=== PATIENT | female | born 1965 | race Caucasian/White ===

== ENCOUNTER 2016-07-05 12:38 | Observation (INO) | payer MEDICAID ==
[2016-07-05] MEDS ORDERED: IOPAMIDOL-300 100 ML VIAL IVP ONE (16:25)
[2016-07-05] MEDS ORDERED: HEPARIN 25,000 UNITS/500 ML 500 ML IV STA (16:59)
[2016-07-05] MEDS ORDERED: HEPARIN 5,000 UNIT/ML VIAL IVP ONE (16:59)
[2016-07-05] MEDS ORDERED: ENOXAPARIN 60 MG/0.6 ML SYRINGE SUBQ STA (17:01)
[2016-07-05] MEDS ORDERED: ENOXAPARIN 100 MG/ML SYRINGE SUBQ ONE (17:12)
[2016-07-05] MEDS ORDERED: ENOXAPARIN 60 MG/0.6 ML SYRINGE SUBQ ONE (17:14)
[2016-07-05] MEDS ORDERED: oxyCODONE 5 MG TABLET PO PRN (18:05)
[2016-07-05] MEDS ORDERED: SODIUM CHLORIDE FLUSH 0.9% 10 ML SYRINGE IVP PRN (18:05)
[2016-07-05] MEDS ORDERED: ONDANSETRON 4 MG/2 ML VIAL IVP PRN (18:05)
[2016-07-05] MEDS ORDERED: ZOLPIDEM 5 MG TABLET PO PRN (18:05)
[2016-07-05] MEDS: oxyCODONE 5 MG TABLET PO PRN (20:02)
[2016-07-05] MEDS: SODIUM CHLORIDE FLUSH 0.9% 10 ML SYRINGE IVP SCH (21:15)
[2016-07-05] MEDS: ACETAMINOPHEN 325 MG TABLET PO PRN (21:16)
[2016-07-05] MEDS ORDERED: HYDROmorphone 1 MG/ML SYRINGE IVP PRN (21:38)
[2016-07-06] MEDS: oxyCODONE 5 MG TABLET PO PRN ×2 (00:12→06:51)
[2016-07-06] MEDS: ACETAMINOPHEN 325 MG TABLET PO PRN (04:14)
[2016-07-06] MEDS: SODIUM CHLORIDE FLUSH 0.9% 10 ML SYRINGE IVP SCH (06:57)
[2016-07-06] MEDS ORDERED: PANTOPRAZOLE 40 MG TABLET PO SCH (07:00)
[2016-07-06] MEDS ORDERED: POLYETHYLENE GLYCOL 3350 17 GM PACKET PO SCH (09:00)
[2016-07-06] MEDS ORDERED: ENOXAPARIN 60 MG/0.6 ML SYRINGE SUBQ SCH (09:00)
== END 2016-07-06 11:35 | disposition home or self-care (01) ==
DX: I26.99 Other pulmonary embolism without acute cor pulmonale (principal); I82.622 Acute embolism and thrombosis of deep veins of left upper extremity; C34.91 Malignant neoplasm of unspecified part of right bronchus or lung; E78.5 Hyperlipidemia, unspecified; I25.10 Atherosclerotic heart disease of native coronary artery without angina pectoris; R94.2 Abnormal results of pulmonary function studies; I25.2 Old myocardial infarction; Z98.61 Coronary angioplasty status; Z85.118 Personal history of other malignant neoplasm of bronchus and lung; Z92.21 Personal history of antineoplastic chemotherapy; Z92.3 Personal history of irradiation; Z91.14 Patient's other noncompliance with medication regimen; Z79.82 Long term (current) use of aspirin; Z79.899 Other long term (current) drug therapy; Z87.891 Personal history of nicotine dependence
CPT/HCPCS: 36415; 71275; 80053; 83690; 83735; 84100; 85025; 85610; 85730; 93971; 96372; 99284; 99285; A9270; G0378; J1650; Q9967

== ENCOUNTER 2016-08-11 12:43 | Outpatient (CLI) | payer MEDICAID | END 2016-08-11 12:44 | disposition home or self-care (01) | DX: Z79.01 Long term (current) use of anticoagulants (principal) ==

== ENCOUNTER 2016-08-11 19:36 | Inpatient (IN) | payer MEDICAID ==
[2016-08-12] MEDS ORDERED: SODIUM CHLORIDE 0.9% 1,000 ML IV STA ×2 (00:27→04:30)
[2016-08-12] MEDS ORDERED: ONDANSETRON 4 MG/2 ML VIAL IVP STA (01:52)
[2016-08-12] MEDS ORDERED: ONDANSETRON 4 MG/2 ML VIAL ONE (01:52)
[2016-08-12] MEDS ORDERED: IOPAMIDOL-300 100 ML VIAL IVP ONE ×2 (02:25)
[2016-08-12] MEDS ORDERED: VANCOMYCIN INJ 1 GM in SODIUM CHLORIDE 0.9% 250 ML IV STA (04:20)
[2016-08-12] MEDS ORDERED: PIPERACILLIN/TAZOBACTAM 3.375 GM in SODIUM CHLORIDE 0.9% MINIBAG 100 ML IV STA (04:20)
[2016-08-12] MEDS ORDERED: PHYTONADIONE INJ (ADULT) 5 MG in SODIUM CHLORIDE 0.9% 50 ML IV ONE (04:31)
[2016-08-12] MEDS ORDERED: PHYTONADIONE INJ (ADULT) 2.5 MG in SODIUM CHLORIDE 0.9% 50 ML IV ONE (04:32)
[2016-08-12] MEDS ORDERED: PHYTONADIONE 10 MG/ML AMP ONE (04:39)
[2016-08-12] MEDS ORDERED: oxyCODONE 5 MG TABLET PO PRN (04:42)
[2016-08-12] MEDS ORDERED: VANCOMYCIN PER PHARMACY 1 GM in SODIUM CHLORIDE 0.9% 250 ML IV SCH (05:00)
[2016-08-12] MEDS: SODIUM CHLORIDE 0.9% 1,000 ML IV SCH ×2 (06:08→13:25)
[2016-08-12] MEDS: GABAPENTIN 300 MG CAPSULE PO SCH ×3 (06:56→21:24)
[2016-08-12] MEDS: SODIUM CHLORIDE FLUSH 0.9% 10 ML SYRINGE IVP SCH ×3 (06:57→22:32)
[2016-08-12] MEDS: ONDANSETRON 4 MG/2 ML VIAL IVP PRN ×3 (08:18→20:07)
[2016-08-12] MEDS: FAMOTIDINE 20 MG/50 ML 50 ML IV SCH ×2 (12:09→21:21)
[2016-08-12] MEDS: PIPERACILLIN/TAZOBACTAM 3.375 GM in SODIUM CHLORIDE 0.9% MINIBAG 100 ML IV SCH ×3 (12:09→23:57)
[2016-08-12] MEDS: FOLIC ACID 1 MG TABLET PO SCH (12:10)
[2016-08-12] MEDS: SUCRALFATE 1 GM/10 ML UDC PO SCH ×2 (16:07→22:43)
[2016-08-12] MEDS: oxyCODONE 5 MG TABLET PO PRN ×2 (16:30→20:27)
[2016-08-12] MEDS: POTASSIUM CHLOR 20 MEQ/100 ML 100 ML IV SCH ×2 (18:05→19:30)
[2016-08-12] MEDS: MORPHINE 2 MG/ML SYRINGE IVP PRN ×2 (19:24→21:58)
[2016-08-12] MEDS: SODIUM CHLORIDE FLUSH 0.9% 10 ML SYRINGE IVP PRN (19:35)
[2016-08-12] MEDS ORDERED: MORPHINE 2 MG/ML SYRINGE IVP SCH (21:00)
[2016-08-12] MEDS: ACETAMINOPHEN 325 MG TABLET PO PRN (21:22)
[2016-08-12] MEDS: ATORVASTATIN 10 MG TABLET PO SCH (21:27)
[2016-08-12] MEDS: CALCIUM CITRATE 250 MG TABLET PO SCH (21:27)
[2016-08-12] MEDS: ALBUTEROL NEB 2.5 MG/3 ML INH PRN (21:30)
[2016-08-13] MEDS: ONDANSETRON 4 MG/2 ML VIAL IVP PRN ×2 (00:27→17:27)
[2016-08-13] MEDS: MORPHINE 2 MG/ML SYRINGE IVP PRN ×4 (00:28→20:00)
[2016-08-13] MEDS: oxyCODONE 5 MG TABLET PO PRN ×3 (00:31→15:42)
[2016-08-13] MEDS: SODIUM CHLORIDE 0.9% 1,000 ML IV SCH ×3 (00:38→20:01)
[2016-08-13] MEDS: ALBUTEROL NEB 2.5 MG/3 ML INH PRN (03:10)
[2016-08-13] MEDS: PIPERACILLIN/TAZOBACTAM 3.375 GM in SODIUM CHLORIDE 0.9% MINIBAG 100 ML IV SCH ×4 (05:14→23:38)
[2016-08-13] MEDS: SODIUM CHLORIDE FLUSH 0.9% 10 ML SYRINGE IVP SCH ×3 (06:00→21:50)
[2016-08-13] MEDS ORDERED: VANCOMYCIN INJ 1 GM in SODIUM CHLORIDE 0.9% 250 ML IV SCH (06:00)
[2016-08-13] MEDS: GABAPENTIN 300 MG CAPSULE PO SCH ×3 (06:08→21:50)
[2016-08-13] MEDS: SUCRALFATE 1 GM/10 ML UDC PO SCH ×4 (07:02→21:50)
[2016-08-13] MEDS: METOPROLOL SUCCINATE 50 MG TABLET PO SCH (08:07)
[2016-08-13] MEDS: MAGNESIUM OXIDE 400 MG TABLET PO SCH ×2 (08:07→13:31)
[2016-08-13] MEDS: FAMOTIDINE 20 MG/50 ML 50 ML IV SCH ×2 (08:08→21:01)
[2016-08-13] MEDS: FOLIC ACID 1 MG TABLET PO SCH (08:08)
[2016-08-13] MEDS: CALCIUM CITRATE 250 MG TABLET PO SCH ×6 (08:08→15:43)
[2016-08-13] MEDS: ISOSORBIDE MONONITRATE ER 30 MG TABLET PO SCH (08:08)
[2016-08-13] MEDS ORDERED: POLYETHYLENE GLYCOL 3350 17 GM PACKET PO ONE (09:00)
[2016-08-13] MEDS ORDERED: FAMOTIDINE 20 MG TABLET PO SCH (09:00)
[2016-08-13] MEDS: ACETAMINOPHEN 325 MG TABLET PO PRN ×2 (10:41→17:29)
[2016-08-13] MEDS: NEUTRA-PHOS 250 MG TABLET PO SCH ×3 (10:47→13:43)
[2016-08-13] MEDS ORDERED: NEUTRA-PHOS 250 MG TABLET PO SCH (11:00)
[2016-08-13] MEDS ORDERED: SODIUM CHLORIDE 0.9% 1,000 ML IV ONE (15:55)
[2016-08-13] MEDS ORDERED: WARFARIN 5 MG TABLET PO SCH (16:00)
[2016-08-13] MEDS: guaiFENesin/DEXTROMETHORPHAN 10 ML UDC PO PRN (17:27)
[2016-08-13] MEDS: VANCOMYCIN INJ 1 GM in SODIUM CHLORIDE 0.9% 250 ML IV SCH (17:58)
[2016-08-13] MEDS: ATORVASTATIN 10 MG TABLET PO SCH (21:01)
[2016-08-14] MEDS: MORPHINE 2 MG/ML SYRINGE IVP PRN ×5 (01:30→11:04)
[2016-08-14] MEDS: SODIUM CHLORIDE 0.9% 1,000 ML IV SCH ×3 (05:15→18:31)
[2016-08-14] MEDS: PIPERACILLIN/TAZOBACTAM 3.375 GM in SODIUM CHLORIDE 0.9% MINIBAG 100 ML IV SCH ×4 (05:16→23:22)
[2016-08-14] MEDS: SODIUM CHLORIDE FLUSH 0.9% 10 ML SYRINGE IVP PRN (05:16)
[2016-08-14] MEDS: SODIUM CHLORIDE FLUSH 0.9% 10 ML SYRINGE IVP SCH ×3 (05:16→16:21)
[2016-08-14] MEDS: GABAPENTIN 300 MG CAPSULE PO SCH ×3 (06:14→22:26)
[2016-08-14] MEDS: VANCOMYCIN INJ 1 GM in SODIUM CHLORIDE 0.9% 250 ML IV SCH ×2 (06:15→18:31)
[2016-08-14] MEDS: SUCRALFATE 1 GM/10 ML UDC PO SCH ×4 (07:20→22:26)
[2016-08-14] MEDS: FAMOTIDINE 20 MG/50 ML 50 ML IV SCH ×2 (09:03→21:14)
[2016-08-14] MEDS: METOPROLOL SUCCINATE 50 MG TABLET PO SCH (10:33)
[2016-08-14] MEDS: ISOSORBIDE MONONITRATE ER 30 MG TABLET PO SCH (10:33)
[2016-08-14] MEDS: FOLIC ACID 1 MG TABLET PO SCH (10:34)
[2016-08-14] MEDS ORDERED: MAGNESIUM SULFATE 2 GRAM 50 ML IV ONE (12:30)
[2016-08-14] MEDS: HYDROmorphone 1 MG/ML SYRINGE IVP PRN ×4 (13:40→23:21)
[2016-08-14] MEDS: KETOROLAC 30 MG/ML VIAL IVP SCH ×2 (13:56→17:37)
[2016-08-14] MEDS: ATORVASTATIN 10 MG TABLET PO SCH (21:14)
[2016-08-15] MEDS: KETOROLAC 30 MG/ML VIAL IVP SCH ×2 (00:27→06:44)
[2016-08-15] MEDS: HYDROmorphone 1 MG/ML SYRINGE IVP PRN ×6 (02:58→23:12)
[2016-08-15] MEDS: oxyCODONE 5 MG TABLET PO PRN (04:08)
[2016-08-15] MEDS: SODIUM CHLORIDE FLUSH 0.9% 10 ML SYRINGE IVP SCH ×3 (05:02→23:01)
[2016-08-15] MEDS: PIPERACILLIN/TAZOBACTAM 3.375 GM in SODIUM CHLORIDE 0.9% MINIBAG 100 ML IV SCH (05:02)
[2016-08-15] MEDS: SODIUM CHLORIDE 0.9% 1,000 ML IV SCH ×3 (05:06→17:02)
[2016-08-15] MEDS ORDERED: PHYTONADIONE 10 MG/ML AMP PO ONE (06:18)
[2016-08-15] MEDS: VANCOMYCIN INJ 1 GM in SODIUM CHLORIDE 0.9% 250 ML IV SCH (06:45)
[2016-08-15] MEDS: SUCRALFATE 1 GM/10 ML UDC PO SCH ×4 (06:45→22:18)
[2016-08-15] MEDS: GABAPENTIN 300 MG CAPSULE PO SCH ×3 (06:45→22:18)
[2016-08-15] MEDS ORDERED: PHYTONADIONE 10 MG/ML AMP PO STA ×2 (07:22→10:54)
[2016-08-15] MEDS ORDERED: POTASSIUM CHLORIDE 20 MEQ TABLET PO ONE ×2 (07:30→11:00)
[2016-08-15] MEDS ORDERED: CEFEPIME 2 GM in SODIUM CHLORIDE 0.9% MINIBAG 100 ML IV SCH (09:00)
[2016-08-15] MEDS: FAMOTIDINE 20 MG/50 ML 50 ML IV SCH (09:51)
[2016-08-15] MEDS: METOPROLOL SUCCINATE 50 MG TABLET PO SCH ×2 (09:57→11:43)
[2016-08-15] MEDS: FOLIC ACID 1 MG TABLET PO SCH (09:57)
[2016-08-15] MEDS: ISOSORBIDE MONONITRATE ER 30 MG TABLET PO SCH ×2 (09:57→11:41)
[2016-08-15] MEDS: CLINDAMYCIN 600 MG/50 ML 50 ML IV SCH ×3 (11:43→23:08)
[2016-08-15] MEDS: SODIUM CHLORIDE FLUSH 0.9% 10 ML SYRINGE IVP PRN (11:47)
[2016-08-15] MEDS: FAMOTIDINE 20 MG TABLET PO SCH ×2 (13:24→21:05)
[2016-08-15] MEDS: SACCHAROMYCES BOULARDII 250 MG CAPSULE PO SCH (17:14)
[2016-08-15] MEDS: ACETAMINOPHEN 325 MG TABLET PO PRN (17:14)
[2016-08-15] MEDS: ATORVASTATIN 10 MG TABLET PO SCH (21:05)
[2016-08-15] MEDS: LIDOCAINE PATCH 5% TOP PRN (21:06)
[2016-08-16] MEDS: HYDROmorphone 1 MG/ML SYRINGE IVP PRN ×7 (02:22→23:35)
[2016-08-16] MEDS: SODIUM CHLORIDE 0.9% 1,000 ML IV SCH ×6 (02:23→23:46)
[2016-08-16] MEDS ORDERED: POTASSIUM CHLORIDE 20 MEQ TABLET PO ONE (03:34)
[2016-08-16] MEDS: CLINDAMYCIN 600 MG/50 ML 50 ML IV SCH ×4 (04:58→23:38)
[2016-08-16] MEDS: GABAPENTIN 300 MG CAPSULE PO SCH ×3 (06:01→21:20)
[2016-08-16] MEDS: SODIUM CHLORIDE FLUSH 0.9% 10 ML SYRINGE IVP SCH ×3 (06:03→21:40)
[2016-08-16] MEDS: SUCRALFATE 1 GM/10 ML UDC PO SCH ×4 (07:11→21:20)
[2016-08-16] MEDS ORDERED: VANCOMYCIN PER PHARMACY 1 GM in SODIUM CHLORIDE 0.9% 250 ML IV SCH (08:00)
[2016-08-16] MEDS: ONDANSETRON 4 MG/2 ML VIAL IVP PRN (08:45)
[2016-08-16] MEDS: ISOSORBIDE MONONITRATE ER 30 MG TABLET PO SCH (08:54)
[2016-08-16] MEDS: SACCHAROMYCES BOULARDII 250 MG CAPSULE PO SCH (08:54)
[2016-08-16] MEDS: guaiFENesin 600 MG TABLET PO SCH (08:54)
[2016-08-16] MEDS: METOPROLOL SUCCINATE 50 MG TABLET PO SCH (08:54)
[2016-08-16] MEDS: FOLIC ACID 1 MG TABLET PO SCH (08:54)
[2016-08-16] MEDS: CEFEPIME 2 GM in SODIUM CHLORIDE 0.9% MINIBAG 100 ML IV SCH ×2 (08:54→21:20)
[2016-08-16] MEDS: FAMOTIDINE 20 MG TABLET PO SCH ×2 (08:54→21:20)
[2016-08-16] MEDS ORDERED: guaiFENesin 600 MG TABLET PO SCH (09:00)
[2016-08-16] MEDS: VANCOMYCIN INJ 1 GM in SODIUM CHLORIDE 0.9% 250 ML IV SCH ×2 (10:05→21:59)
[2016-08-16] MEDS ORDERED: DEXTROSE 5% IV SCH (11:00)
[2016-08-16] MEDS ORDERED: AMPHOTERICIN B IV SCH (11:00)
[2016-08-16] MEDS ORDERED: NEUTRA-PHOS 250 MG TABLET ONE (13:35)
[2016-08-16] MEDS ORDERED: CASPOFUNGIN 70 MG in SODIUM CHLORIDE 0.9% 250 ML IV ONE (16:00)
[2016-08-16] MEDS: ATORVASTATIN 10 MG TABLET PO SCH (21:20)
[2016-08-16] MEDS: oxyCODONE 5 MG TABLET PO PRN (21:31)
[2016-08-16] MEDS: LIDOCAINE PATCH 5% TOP PRN (21:31)
[2016-08-16] MEDS: guaiFENesin/DEXTROMETHORPHAN 10 ML UDC PO PRN (21:31)
[2016-08-17] MEDS: CLINDAMYCIN 600 MG/50 ML 50 ML IV SCH ×3 (05:12→17:14)
[2016-08-17] MEDS: HYDROmorphone 1 MG/ML SYRINGE IVP PRN ×3 (05:18→15:15)
[2016-08-17] MEDS: ONDANSETRON 4 MG/2 ML VIAL IVP PRN (05:18)
[2016-08-17] MEDS: GABAPENTIN 300 MG CAPSULE PO SCH ×3 (05:24→14:27)
[2016-08-17] MEDS: SODIUM CHLORIDE 0.9% 1,000 ML IV SCH ×2 (05:48→15:15)
[2016-08-17] MEDS: guaiFENesin/DEXTROMETHORPHAN 10 ML UDC PO PRN (05:54)
[2016-08-17] MEDS: SUCRALFATE 1 GM/10 ML UDC PO SCH ×3 (06:01→16:03)
[2016-08-17] MEDS: oxyCODONE 5 MG TABLET PO PRN ×2 (06:01→14:26)
[2016-08-17] MEDS: SODIUM CHLORIDE FLUSH 0.9% 10 ML SYRINGE IVP SCH ×2 (06:02→14:29)
[2016-08-17] MEDS: CEFEPIME 2 GM in SODIUM CHLORIDE 0.9% MINIBAG 100 ML IV SCH ×2 (08:37→20:24)
[2016-08-17] MEDS: FAMOTIDINE 20 MG TABLET PO SCH (08:37)
[2016-08-17] MEDS: FOLIC ACID 1 MG TABLET PO SCH (08:38)
[2016-08-17] MEDS: ISOSORBIDE MONONITRATE ER 30 MG TABLET PO SCH (08:38)
[2016-08-17] MEDS: guaiFENesin 600 MG TABLET PO SCH (08:38)
[2016-08-17] MEDS ORDERED: DEXTROSE 5% IV SCH (09:00)
[2016-08-17] MEDS ORDERED: AMPHOTERICIN B IV SCH (09:00)
[2016-08-17] MEDS ORDERED: SODIUM CHLORIDE 0.9% 1,000 ML IV SCH (10:00)
[2016-08-17] MEDS: METOPROLOL SUCCINATE 50 MG TABLET PO SCH (11:03)
[2016-08-17] MEDS: MAGNESIUM OXIDE 400 MG TABLET PO SCH ×2 (11:24→17:15)
[2016-08-17] MEDS: VANCOMYCIN INJ 1 GM in SODIUM CHLORIDE 0.9% 250 ML IV SCH (14:36)
[2016-08-17] MEDS ORDERED: CASPOFUNGIN 50 MG in SODIUM CHLORIDE 0.9% 100ML 100 ML IV SCH (16:00)
[2016-08-17] MEDS ORDERED: LORazepam 2 MG/ML SYRINGE IVP SCH (19:26)
[2016-08-17] MEDS: SODIUM CHLORIDE FLUSH 0.9% 10 ML SYRINGE IVP PRN (19:45)
== END 2016-08-17 21:00 | disposition short-term general hospital (02) | DRG 177 ==
DX: A15.0 Tuberculosis of lung (principal); I26.99 Other pulmonary embolism without acute cor pulmonale; C34.91 Malignant neoplasm of unspecified part of right bronchus or lung; C79.51 Secondary malignant neoplasm of bone; J98.11 Atelectasis; J18.9 Pneumonia, unspecified organism; J90 Pleural effusion, not elsewhere classified; I10 Essential (primary) hypertension; E78.5 Hyperlipidemia, unspecified; E87.6 Hypokalemia; Z92.21 Personal history of antineoplastic chemotherapy; Z79.01 Long term (current) use of anticoagulants; I25.10 Atherosclerotic heart disease of native coronary artery without angina pectoris; I25.2 Old myocardial infarction; F17.200 Nicotine dependence, unspecified, uncomplicated; Z80.8 Family history of malignant neoplasm of other organs or systems; Z82.3 Family history of stroke; Z82.49 Family history of ischemic heart disease and other diseases of the circulatory system; I95.9 Hypotension, unspecified; D63.8 Anemia in other chronic diseases classified elsewhere; G89.3 Neoplasm related pain (acute) (chronic)